=== PATIENT | female | born 1955 | race Caucasian/White ===

== ENCOUNTER 2023-03-03 11:33 | Outpatient (CLI) | payer MEDICARE, SELFPAY ==
[2023-03-03 22:53] LABS: Bacterial Vaginosis* NEGATIVE (No Detected); Candida glab/krus NOT DETECTED (No Detected); Candida species NOT DETECTED (No Detected); Trichomonas vaginalis NOT DETECTED (No Detected)
== END 2023-03-03 11:34 | disposition home or self-care (01) ==
PROVIDERS: PCP Family Medicine; Visit Provider Obstetrics & Gynecology
DX: N89.8 Other specified noninflammatory disorders of vagina (principal)
CPT/HCPCS: 81513; 87070; 87086; 87186; 87481; 87661

== ENCOUNTER 2024-04-22 17:30 | Outpatient (CLI) | payer MEDICARE, SELFPAY | END 2024-04-22 17:31 | disposition home or self-care (01) | LOC: MRI 17:30 | PROVIDERS: PCP Family Medicine; Visit Provider Family Medicine | DX: M54.50 Low back pain, unspecified (principal); M51.26 Other intervertebral disc displacement, lumbar region; M51.27 Other intervertebral disc displacement, lumbosacral region; G95.20 Unspecified cord compression | CPT/HCPCS: 72148 ==

== ENCOUNTER 2024-04-23 10:33 | Outpatient (CLI) | payer MEDICARE, SELFPAY | END 2024-04-23 10:34 | disposition home or self-care (01) | LOC: INJ CL 10:34 | PROVIDERS: PCP Family Medicine; Visit Provider Family Medicine | DX: M54.16 Radiculopathy, lumbar region (principal); M51.26 Other intervertebral disc displacement, lumbar region; M51.369 Other intervertebral disc degeneration, lumbar region without mention of lumbar back pain or lower extremity pain | CPT/HCPCS: 64483; J1100; Q9966 ==

== ENCOUNTER 2024-07-31 14:00 | Outpatient (RCR) | payer MEDICARE, SELFPAY ==
--- NOTE | 2024-04-12 11:56 | PT.OPE ---
PT [place] [facility] Eval PT [facility] Out[facility] Eval Start: 04/12/24 09:54 Freq: Status: Active Protocol: Document 04/12/24 11:55 CJT (Rec: 04/12/24 11:56 CJT [id number]) E-signed By Esdras Teran PT Physical Therapy Outpatient Evaluation Insurance Information Recert Due Date 07/11/24 Insurance Name Medicare B Medical Diagnosis M54.16 - radiculopathy, lumbar region Treating Diagnosis M54.16 - radiculopathy, lumbar region Imaging Report Information X-Ray - Lumbar Spine - 04/11/24 Chronic wedging L1. Discogenic spurring mid and lower lumbar spine along with facet degeneration. No spondylolisthesis or new fracture. Vascular calcifications. Air in the biliary tree noted. This may be due to interval cholecystectomy or sphincterotomy and recommend clinical correlation. Referring Kuldip Sanchez MD Subjective Preferred Name Uma Edgar Pt presents with complaints of low back pain, R buttock, pain, and pain in R LE. Pt requested that she be pushed into our clinic today from her vehicle by wheelchair due to her pain. Pt has long history of back pain and was hoping to have what sounds like lumbar fusion in 2021. Pt reports that approx 10 days ago her pain became much worse. Pt rates her pain currently as 9/ 10 and notes that if I said 10/10 they said I would have to go to the hospital. Pt visited last weekend and was prescribed a medrol dose pack with was not effective. She met with Dr. Sherman yesterday and is now scheduled for MRI of the lumbar spine on 04/22. Pts pain is in the her R buttock, lateral aspect of R leg and dorsum of R foot. Standing and walking make her pain worse. Sitting in her recliner or laying in her bed helps to improve the pain. Pt notes that when she stands she has to stoop forward. Pain Comments 10 / post-treatment Date of Last Physician Visit 04/11/24 Current Work Status Retired Precautions Therapy Limitations/Systems Review Not Limited Objective Other/Pertinent Objective Lumbar ROM Extension - unable, pain increases with return to neutral Flexion - limited by abdominal mass, helps to alleviate pain R/L Side Bend - max limitations due to abdominal mass R/L Rotation - max limitations due to abdominal mass R knee Extension - 4/5 MMT * limited by pain R Knee Flexion - 4/5 MMT * limited by pain L knee Extension - 5/5 MMT L knee Flexion - 5/5 MMT R ankle DF - 2/5 MMT *unable to DF to neutral L ankle DF - 4+/5 MMT Palpation: pt reports pain/ tenderness with palpation to R glute med, piriformis Gait: unable to ambulate due to pain Assessment Assessment/Impression Uma is a very pleasant 68 year old Female who presents to our clinic for evaluation and treatment of low back pain with R sided lumbar radiculopathy. Pts symptoms are consistent with L5/S1 radiculopathy. Her pain is made worse with lumbar extension and somewhat relieved with lumbar flexion. Pt does not tolerate lying on her back or R side well and this made today's evaluation and treatment quite challenging. I did give pt a thorough education on the mechanism of this condition and she gave verbal understanding to my instruction. Pt understands that lumbar flexion including leaning/bending forward are likely to improve her symptoms and lumbar extension or leaning backwards will exacerbate her symptoms. Because of pts high level of pain this date, I decided it was most important to help pt alleviate her pain before leaving the clinic. I am pleased to say that we were able to achieve this with combination of STM, estim, and heat. Given pts history fo low back pain and current flare, I am not confident that PT alone will help pt reach resolution of symptoms. I would recommend MELANIE to affected nerve root of the lumbar spine and given her history of being a surgical candidate for lumbar fusion, this may be an eventual path for her. Treatment will consist of pain management techniques as well as gradual progression of stretching and strengthening exercises as appropriate. The nature of the pts condition was explained and all questions were answered to the pts satisfaction. Skilled PT services are medically necessary to address deficits and return patient to highest level of function. Recommend physical therapy sessions 1-3/ week for 4-8 weeks. Pt agrees with this plan. Printout of HEP was given for I completion and pt gives verbal understanding of each exercise . Primary Functional Limitations Standing, walking Plan of Care Rehabilitation Potential Fair Physical Therapy Goals STG - To be completed in 2-3 weeks: 1. Pt will report reduction in back pain by factor of 2 so that they may perform all ADLs with tolerable level of pain. 2. Pt will demonstrate ability to perform pelvic tilt with good coordination as indication of appropriate firing of pelvic and lumbar stabilizing muscles to provide greater support for pelvis and lumbar spine. 3. Pt will demonstrate at least 4/5 MMT for R ankle DF as indication of reduced nerve root impingement and to assist with ambulation. LTG - To be completed in 6-8 weeks: 1. Pt to be I with HEP so that they may I manage progression of symptoms. 2. Pt will report ability to sleep through the night without waking due to pain so that they may wake well rested with reduced mental fatigue during working hours. 3. Pt will report ability to tolerate 30+ minutes of standing so that they may shop for groceries at store. Treatment Plan/Direct Interventions Dry Needling,Electrical Stimulation,Gait Training,Heat ,Ice/Cold/Vasopneumatic,Joint Mobilization,Manual Therapy, Neuromuscular Re-ed,Self-Care/ Home Management,Therapeutic Activities,Therapeutic Exercises,Traction (Mechanical ),Ultrasound Frequency/Duration 1-3/week for 4-8 weeks Patient Will Be Discharged From Therapy Completion of LTG(s),Skills Plateau,Independent w/HEP, Independently Progressing Evaluation Billing Untimed Code Treatment Minutes 54 PT Eval No Charge No Complexity Low Certification Information Initial Certification Date 04/12/24 Ending Certification Date 07/11/24 Provider Signature Required Yes Provider Signature Shows Agreement With POC & Medical Necessity Physician NPI Number Write NPI# Here Physician Comment/Change : Physician Signature & Date Requested Please Sign/Date Here
--- NOTE | 2024-05-24 11:06 | PT.OPDN ---
PT [place] Outpatient Daily Note PT [facility] Out[facility] Daily Note Start: 04/12/24 09:54 Freq: Status: Active Protocol: Document 05/24/24 10:46 CJT (Rec: 05/24/24 11:06 EVON [id number]) E-signed By Esdras Teran, PT PT OP Daily Progress Note Visit Information Note Type Recert/Progress Note Visit Number 10 Physician Authorized Visits eval and treat Insurance Information Recert Due Date 07/11/24 Insurance Name Medicare B Medical Diagnosis M54.16 - radiculopathy, lumbar region Treating Diagnosis M54.16 - radiculopathy, lumbar region Imaging Report Information X-Ray - Lumbar Spine - 04/11/24 Chronic wedging L1. Discogenic spurring mid and lower lumbar spine along with facet degeneration. No spondylolisthesis or new fracture. Vascular calcifications. Air in the biliary tree noted. This may be due to interval cholecystectomy or sphincterotomy and recommend clinical correlation. Referring Kuldip Sanchez MD Subjective Preferred Name Uma Subjective Pt continues to have constant pain in low back and dorsum of R foot has remained numb and painful. Pt continues to ambulate with FWW. Eager to meet with surgeon to discuss next steps. Date of Last Physician Visit 04/11/24 Objective Other/Pertinent Objective Lumbar ROM Extension - unable, pain increases with return to neutral Flexion - limited by abdominal mass, helps to alleviate pain R/L Side Bend - max limitations due to abdominal mass R/L Rotation - max limitations due to abdominal mass R knee Extension - 4/5 MMT * limited by pain R Knee Flexion - 4/5 MMT * limited by pain L knee Extension - 5/5 MMT L knee Flexion - 5/5 MMT R ankle DF - 2/5 MMT *unable to DF to neutral L ankle DF - 4+/5 MMT Palpation: pt reports pain/ tenderness with palpation to R glute med, piriformis Gait: unable to ambulate due to pain Patient Instructed in Risks/Benefits Yes Manual Therapy Techniques Manual Therapy Minutes (minutes) 15 Manual Therapy Techniques STM to RIGHT gluteus minimus, gluteus medius, piriformis, hamstrings, IT band, vastus lateralis, gastroc, soleus, and tibialis anterior to reduce tissue tension and improve extensibility. Dry Needling Dry Needle Minutes 5 Dry Needle Comments Potential risks and benefits of dry needling discussed in detail with patient, including post treatment muscle soreness, risk of infection, risk of bruising and risk of pneumothorax. No, History of seizure precaution(s) noted, patient verbalizes understanding of risks and wishes to proceed with treatment. Verbal and written consent (first visit) obtained . Patient consents to dry needling using sterile dry needle technique in left sidelying position to right lumbar erector spinae muscle group(s) with Dual Channel STIM. Sufficient twitch and homeostasis along with notable tissue softening was obtained . Patient tolerated well with no residual issues; all needles were removed. Post treatment recommendations discussed with patient. Other Interventions Provided Other Modalities Provided Estim - 15 minutes - electrodes placed at R glute med, R glute min, and R piriformis - intensity set to pt preference - performed in L S/L position. Other Modalities Untimed Minutes 15 Treatment Minutes Untimed Code Treatment Minutes 15 Timed Code Treatment Minutes 20 Total Treatment Time 35 Billing Units Manual Therapy Units 1 Electrical Stimulation Units 1 Assessment/Impression Assessment/Impression Uma's symptoms have been unchanged since starting her physical therapy. With the results of her MRI, she understands that outcomes from PT are limited and we have continued to treat as needed for pain management. While our treatment in the clinic has been beneficial and reduces her pain, the results from these sessions are short-lived . We will continue to treat as needed for pain management until pt has opportunity to meet with Dr. Johnson and/or referral to surgeon, as pt feels that PT has been very helpful in managing her pain. Recommend continued PT services to address deficits and return pt to highest level of function. Primary Functional Limitations Standing, walking Plan of Care Physical Therapy Goals STG - To be completed in 2-3 weeks: 1. Pt will report reduction in back pain by factor of 2 so that they may perform all ADLs with tolerable level of pain. 2. Pt will demonstrate ability to perform pelvic tilt with good coordination as indication of appropriate firing of pelvic and lumbar stabilizing muscles to provide greater support for pelvis and lumbar spine. 3. Pt will demonstrate at least 4/5 MMT for R ankle DF as indication of reduced nerve root impingement and to assist with ambulation. LTG - To be completed in 6-8 weeks: 1. Pt to be I with HEP so that they may I manage progression of symptoms. 2. Pt will report ability to sleep through the night without waking due to pain so that they may wake well rested with reduced mental fatigue during working hours. 3. Pt will report ability to tolerate 30+ minutes of standing so that they may shop for groceries at store. Daily Plan of Care Continue per POC Student Supervision Licensed PT Directed/Approved Treatment, Reviewed POC with Patient,Made Contact with Patient, Participated in Treatment Documentation Reviewed By Revenue Agent Yes
--- NOTE | 2024-06-28 14:28 | PT.OPDN ---
PT [place] Outpatient Daily Note PT [facility] Out[facility] Daily Note Start: 04/12/24 09:54 Freq: Status: Active Protocol: Document 06/28/24 14:12 CJT (Rec: 06/28/24 14:27 CJT [id number]) E-signed By Esdras Teran, PT PT OP Daily Progress Note Visit Information Note Type Recert/Progress Note Visit Number 19 Physician Authorized Visits eval and treat Insurance Information Recert Due Date 07/11/24 Insurance Name Medicare B Medical Diagnosis M54.16 - radiculopathy, lumbar region Treating Diagnosis M54.16 - radiculopathy, lumbar region Imaging Report Information X-Ray - Lumbar Spine - 04/11/24 Chronic wedging L1. Discogenic spurring mid and lower lumbar spine along with facet degeneration. No spondylolisthesis or new fracture. Vascular calcifications. Air in the biliary tree noted. This may be due to interval cholecystectomy or sphincterotomy and recommend clinical correlation. Referring Kuldip Sanchez MD Subjective Preferred Name Uma Subjective Pt notes that her knees have been hurting more since working on sit to stands. Continues to deny any change in her symptom. Last night however, had a new streak of pain from her big toe up to her ankle. Reports that this occurred several times in a row but has not experienced it since. Date of Last Physician Visit 04/11/24 Objective Other/Pertinent Objective Lumbar ROM Extension - unable, pain increases with return to neutral Flexion - limited by abdominal mass, helps to alleviate pain , no change in R foot numbness R/L Side Bend - max limitations, no change in pain R/L Rotation - max limitations , no change in pain R knee Extension - 4/5 MMT * limited by pain R Knee Flexion - 4/5 MMT * limited by pain L knee Extension - 5/5 MMT L knee Flexion - 5/5 MMT R ankle DF - 2/5 MMT contraction noted through partial ROM L ankle DF - 4+/5 MMT Gait: unable to ambulate without AD due to pain Patient Instructed in Risks/Benefits Yes Therapeutic Exercise Therapeutic Exercise Minutes (minutes) 15 Therapeutic Exercise: To Restore NuStep - 15 minutes, level 4 Functional Status Manual Therapy Techniques Manual Therapy Minutes (minutes) 25 Manual Therapy Techniques STM to RIGHT gluteus minimus, gluteus medius, piriformis, and IT band to reduce tissue tension and improve extensibility as well as decrease pain. Other Interventions Provided Other Modalities Provided Estim - 15 minutes - electrodes placed at R glut med and piriformis - IFC, intensity set to pt preference - performed in L S/L position . Other Modalities Untimed Minutes 15 Treatment Minutes Untimed Code Treatment Minutes 15 Timed Code Treatment Minutes 40 Total Treatment Time 55 Billing Units Manual Therapy Units 2 Therapeutic Exercise Units 1 Electrical Stimulation Units 1 Assessment/Impression Assessment/Impression Uma has unfortunately failed to see adequate improvement in her symptoms with Physical Therapy, but continues to report short term improvement in her symptoms from treatment. Uma's pain remains unchanged with changes in position of her spine. Her R ankle DF remains 2/5 MMT with motion noted through approx 50% ROM. As Uma continues to wait for her upcoming surgery, I would recommend continued treatment for maintenance of her painful symptoms. Pt is in agreement with this plan. Recommend continued PT services to address deficits and return pt to highest level of function. Primary Functional Limitations Standing, walking Plan of Care Physical Therapy Goals STG - To be completed in 2-3 weeks: 1. Pt will report reduction in back pain by factor of 2 so that they may perform all ADLs with tolerable level of pain. 2. Pt will demonstrate ability to perform pelvic tilt with good coordination as indication of appropriate firing of pelvic and lumbar stabilizing muscles to provide greater support for pelvis and lumbar spine. 3. Pt will demonstrate at least 4/5 MMT for R ankle DF as indication of reduced nerve root impingement and to assist with ambulation. LTG - To be completed in 6-8 weeks: 1. Pt to be I with HEP so that they may I manage progression of symptoms. 2. Pt will report ability to sleep through the night without waking due to pain so that they may wake well rested with reduced mental fatigue during working hours. 3. Pt will report ability to tolerate 30+ minutes of standing so that they may shop for groceries at store. Daily Plan of Care Continue per POC
--- NOTE | 2024-07-12 15:05 | PT.OPDN ---
PT [place] Outpatient Daily Note PT [facility] Daily Note Start: 04/12/24 09:54 Freq: Status: Active Protocol: Document 07/12/24 13:34 (Rec: 07/12/24 15:05 MRS [id number]) E-signed By Tita Edwards DPT PT OP Daily Progress Note Visit Information Note Type Daily Note,Recert/Progress Note Visit Number 23 Physician Authorized eval and treat Visits Insurance Information Recert Due Date 07/11/24 Insurance Name Medicare B Medical Diagnosis M54.16 - radiculopathy, lumbar region Treating Diagnosis M54.16 - radiculopathy, lumbar region Imaging Report X-Ray - Lumbar Spine - 04/11/24 Information Chronic wedging L1. Discogenic spurring mid and lower lumbar spine along with facet degeneration. No spondylolisthesis or new fracture. Vascular calcifications. Air in the biliary tree noted. This may be due to interval cholecystectomy or sphincterotomy and recommend clinical correlation. Referring Kuldip Sanchez MD Subjective Preferred Name Uma Subjective Uma is continuing to have soreness especially in knees and back, she thinks it may be the weather. Uma said that her surgery may be delayed due to A1C increasing but will have a recheck in 2 weeks. Uma would like to continue with PT treatment for pain management and strengthening prior to surgery. Pain Comments 8/10 in knees and back Date of Last 07/11/24 Physician Visit Date of Surgery (If 08/06/24 applicable) Objective Other/Pertinent Lumbar ROM Objective Extension - unable, pain increases into tailbone and right leg Flexion - WNL; pain on return to upright/neutral R/L Side Bend - symmetrical, slight pain with right side bend R/L Rotation - left rotation > right rotation; no pain R knee Extension - 4/5 MMT - no pain R Knee Flexion - 4+/5 MMT - no pain L knee Extension - 5/5 MMT L knee Flexion - 5/5 MMT R ankle DF - 2+/5 MMT contraction noted through partial ROM antigravity L ankle DF - 4+/5 MMT Gait: continues to require use of FWW during gait Patient Instructed Yes in Risks/Benefits Therapeutic Exercise Therapeutic Exercise 25 Minutes (minutes) Therapeutic Exercise -NuStep - 15 minutes, level 4 : To Restore - Standing marches 2 x 20 Functional Status - Stand hip abduction 2 x 10 Therapeutic Activity Therapeutic Activity 10 Minutes (minutes) Therapeutic - sit to stands x 5 Activities Comments - educated and instructed on car transfers post surgery Manual Therapy Techniques Manual Therapy 15 Minutes (minutes) Manual Therapy STM to RIGHT glute min, glute med, piriformis, and IT Techniques band in L side lying using foam roller to reduce tissue tension and improve extensibility as well as decrease pain. Other Interventions Provided Other Modalities E-stim: IFC to right piriformis/glute for pain relief Provided Other Modalities 10 Timed Minutes Treatment Minutes Timed Code Treatment 60 Minutes Total Treatment Time 60 Billing Units Manual Therapy Units 1 Therapeutic Activity 1 Units Therapeutic Exercise 1 Units Electrical 1 Stimulation Units Assessment/Impression Assessment/ Uma continues to present with increased soreness Impression mostly in her knees and low back. exercises and activities completed as listed above. Uma demonstrated increased lumbar ROM and LE strength compared to evaluation while experiencing decreased pain. By the end of treatment session, Uma report pain at 6/10 vs 8/10. At this time, Uma is unsure if she will be able to have her surgery due to lab values but feels that PT is helping and would like to continue with PT treatment. Uma still hopes to have her spine surgery on 08/06/24. Recommend continued PT treatment to further improve lower extreminty and lumbar ROM, strength, and functional moblity while decreasing pain. Primary Functional Standing, walking Limitations Plan of Care Physical Therapy STG - To be completed in 2-3 weeks: Goals 1. Pt will report reduction in back pain by factor of 2 so that they may perform all ADLs with tolerable level of pain.- met 07/12/24 2. Pt will demonstrate ability to perform pelvic tilt with good coordination as indication of appropriate firing of pelvic and lumbar stabilizing muscles to provide greater support for pelvis and lumbar spine.- progressing 3. Pt will demonstrate at least 4/5 MMT for R ankle DF as indication of reduced nerve root impingement and to assist with ambulation. -progressing, un met at this time. LTG - To be completed in 6-8 weeks: 1. Pt to be I with HEP so that they may I manage progression of symptoms. 2. Pt will report ability to sleep through the night without waking due to pain so that they may wake well rested with reduced mental fatigue during working hours . 3. Pt will report ability to tolerate 30+ minutes of standing so that they may shop for groceries at store. Daily Plan of Care Continue per POC Student Supervision Licensed PT Directed/Approved Treatment,Reviewed POC with Patient, Made Contact with Patient,Participated in Treatment Documentation Yes Reviewed By Automobile Sales Consultant Recertification Information Initial 04/12/24 Certification Date Recertification 07/10/24 Start Date Recertification Due 10/10/24 Date Reasons to Continue Uma would like to continue with PT treatment for Skilled Therapy pain management and strengthening prior to surgery. Jamiecie demonstrates increased lumbar ROM and LE strength compared to evaluation while experiencing decreased pain. Recommend continued PT treatment for further pain reduction while increasing LE strength and spine stabilization. Rehabilitation fair Potential Continued Plan of therapeutic exercises, therapeutic activities, manual Care and therapy, neuro re-ed, e-stim, dry needling Interventions Provider Signature POC & Medical Necessity Shows Agreement With Physician Comment/ Comment or Changes Change Physician NPI Number #
== END 2024-08-01 12:57 | disposition home or self-care (01) ==
PROVIDERS: PCP Family Medicine; Visit Provider Family Medicine
DX: M54.16 Radiculopathy, lumbar region (principal); Z51.89 Encounter for other specified aftercare
CPT/HCPCS: 97012; 97032; 97033; 97110; 97116; 97140; 97161; 97530

== ENCOUNTER 2024-11-27 07:59 | Outpatient (CLI) | payer MEDICARE, SELFPAY | END 2024-11-27 08:00 | disposition home or self-care (01) | LOC: RAD 08:01 | PROVIDERS: PCP Family Medicine; Visit Provider Nurse Anesthetist, Certified Registered | DX: M17.11 Unilateral primary osteoarthritis, right knee (principal); M25.561 Pain in right knee | CPT/HCPCS: 64454 ==

== ENCOUNTER 2024-12-18 09:26 | Outpatient (CLI) | payer MEDICARE, SELFPAY | END 2024-12-18 09:27 | disposition home or self-care (01) | LOC: INJ CL 09:26 | PROVIDERS: PCP Family Medicine; Visit Provider Nurse Anesthetist, Certified Registered | DX: M17.11 Unilateral primary osteoarthritis, right knee (principal) | CPT/HCPCS: 64624; J0665; J1885 ==